=== PATIENT | female | born 1955 | race Caucasian/White ===

== ENCOUNTER 2020-08-25 10:46 | Emergency (ER) | payer BC, OTHER ==
[2020-08-25 12:34] LABS: HEMOGLOBIN 16.5 gm/dl (12.3-15.3); RED BLOOD COUNT 4.76 M/UL (4.00-5.10); WHITE BLOOD COUNT 8.8 K/UL (4.5-11.0)
[2020-08-25] MEDS ORDERED: BENADRYL 25MG C25 MG PO (14:56)
[2020-08-25] MEDS ORDERED: PEPCID20 MG PO (15:01)
[2020-08-25] MEDS ORDERED: PREDNISONE 20 M20 MG PO (15:01)
== END 2020-08-25 15:10 | disposition home or self-care (01) ==
LOC: ER1 10:46
PROVIDERS: Family Medicine
DX: L50.0 Allergic urticaria (principal); I10 Essential (primary) hypertension; F17.210 Nicotine dependence, cigarettes, uncomplicated; Z79.899 Other long term (current) drug therapy
CPT/HCPCS: 36415; 85025; 96374; 96375; 96376; 99284; J1200; J2920; J2930; J7030

== ENCOUNTER → 2021-08-24 | Outpatient (CLI) | payer BC ==
[~2021-08-24] MED LIST: BENADRYL 25MG C25 MG PO; PEPCID20 MG PO; PREDNISONE 20 M20 MG PO
[2021-08-25 08:16] LABS: FERRITIN 595 ng/mL (15-150); IRON BIND.CAP.(TIBC) 375 ug/dL (250-450); IRON SATURATION 19 % (15-55); IRON, SERUM 73 ug/dL (27-139); UIBC 302 ug/dL (118-369)
== END ==
LOC: US 08:30 → NM 09:00
PROVIDERS: Physician Assistant
DX: R10.11 Right upper quadrant pain (principal); K58.0 Irritable bowel syndrome with diarrhea; K76.0 Fatty (change of) liver, not elsewhere classified
CPT/HCPCS: 36415; 76705; 82728; 83540; 83550; 83690

== ENCOUNTER → 2021-10-01 | Outpatient (CLI) | payer BC | LOC: KOH-I 11:04 | DX: M25.552 Pain in left hip (principal); N39.0 Urinary tract infection, site not specified; M16.12 Unilateral primary osteoarthritis, left hip; M19.041 Primary osteoarthritis, right hand; Z98.890 Other specified postprocedural states | CPT/HCPCS: 73110; 73502 ==